=== PATIENT | female | born 1970 | race American Indian/Alaskan Native ===

== ENCOUNTER 2016-05-25 10:06 | Outpatient (CLI) | payer BC ==
[2016-05-25] MEDS ORDERED: NACL ONE (10:57)
--- NOTE | 2016-05-25 13:20 | Cat Scan Report ---
CT ABDOMEN AND PELVIS WITH CONTRAST INDICATION: Abdominal pain. COMPARISON: None similar at this institution. FINDINGS: Abdomen and pelvis CT performed following intravenous administration of 100 cc of Omnipaque 300. LUNG BASES: Top normal heart size. Mild nonspecific distal esophageal prominence/thickening. Minimal lingular and right middle lobe scarring. ABDOMEN: Left hepatic lobe tip extends into the left upper quadrant. Otherwise unremarkable liver, spleen, gallbladder, pancreas, adrenals, nonaneurysmal abdominal aorta, IVC and kidneys. No ascites or size significant adenopathy. Nonopacified GI tract evaluation limited, though grossly nonobstructive. Aortomesenteric distance is 4-5 mm as on axial image 126, series 2. Normal appendix. Mild to moderate colonic stool, most along the ascending colon/possible constipation. Fat-containing umbilical hernia/outward bowing. PELVIS: Possibly retroverted uterus with slight nonspecific heterogeneity. Approximately 1.6 cm right ovarian cyst with mild bilateral adnexal/paraovarian hypodensity/fluid. Unremarkable sigmoid. Rectal stool. Normal urinary bladder. No free fluid or significant adenopathy. Slight bony degenerative changes. CONCLUSION: No acute CT abnormality with few incidental findings, as above. 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 Thank you for the opportunity to participate in this patient's care.
== END 2016-05-25 10:07 | disposition home or self-care (01) ==
LOC: CT 10:06
PROVIDERS: ATTEND Radiology Diagnostic Radiology
DX: N83.201 Unspecified ovarian cyst, right side (principal); K42.9 Umbilical hernia without obstruction or gangrene
CPT/HCPCS: 74177; Q9967